=== PATIENT | female | born 1960 | race Hispanic/Latino ===

== ENCOUNTER 2017-08-27 19:25 | Emergency (ER) | payer OTHER ==
[2017-08-27 19:25] VITALS: BMI 21.7
[2017-08-27 19:33] VITALS: PULSE 78; RESP 16; TEMP 97.8; O2SAT 98
[2017-08-27 20:26] LABS: BASO # 0.1 K/uL (0.0-0.2); BASO % 1.3 % (0.0-2.0); EOS # 0.1 K/uL (0.0-0.7); EOS % 1.3 % (0.0-4.0); HEMOGLOBIN 11.3 g/dL (12.0-16.0); LYMPH # 1.2 K/uL (1.0-4.3); LYMPH % 14.9 % (20.0-40.0); MEAN CORPUSCULAR HEMOGLOBIN 26.5 pg (27.0-31.0); MEAN CORPUSCULAR HGB CONC 30.8 g/dL (33.0-37.0); MEAN PLATELET VOLUME 7.9 fl (7.2-11.7); MONO # 0.7 K/uL (0.0-0.8); MONO % 8.9 % (0.0-10.0); NEUT # 6.2 K/uL (1.8-7.0); NEUT % 73.6 % (50.0-75.0); NRBC % 0.1 % (0.0-0.0); RBC 4.25 Mil/uL (3.80-5.20); RED CELL DISTRIBUTION WIDTH 17.7 % (11.5-14.5); WHITE BLOOD COUNT 8.4 K/uL (4.8-10.8)
[2017-08-27 20:38] LABS: INR 1.1 (0.9-1.2); PARTIAL THROMBOPLASTIN TIME 29.7 Seconds (25.6-37.1); PROTHROMBIN TIME 11.8 Seconds (9.8-13.1)
[2017-08-27 20:40] LABS: ALBUMIN 3.6 g/dL (3.5-5.0); ALT/SGPT 38 U/L (9-52); AST/SGOT 27 U/L (14-36); BLOOD UREA NITROGEN 16 mg/dl (7-17); CALCIUM 9.4 mg/dL (8.4-10.2); GFR AFRICAN-AMERICAN > 60; GFR NON-AFRICAN AMERICAN > 60
--- NOTE | 2017-08-27 20:40 | ED PDOC ---
HPI: Female Pain Time Seen by Provider: 08/27/17 19:41 Chief Complaint (Nursing): Female Genitourinary Chief Complaint (Provider): Vaginal bleeding History Per: Patient History/Exam Limitations: no limitations Onset/Duration Of Symptoms: Hrs Additional Complaint(s): 57yo female, presents to ED for evaluation of vaginal bleeding since this evening. Patient sttaes she underwent an endometrial biopsy at 1800 today and since then has had excessive bleeding. She was advised by Dr. Villareal to come to the ER for further evaluation. She denies any vaginal pain, light headedness , shortness of breath or chest pain. Patient was recently admitted to [facility] due to severe anemia, Hgb of 6 and transfused 4 units of blood. Source of anemia was thought to be due to vaginal bleeding. Abnormal Vaginal Bleeding: Yes Past Medical History Reviewed: Historical Data, Nursing Documentation, Vital Signs Vital Signs: Last Vital Signs Temp 97.8 F 08/27/17 19:28 Pulse 78 08/27/17 19:28 Resp 16 08/27/17 19:28 BP 184/95 H 08/27/17 19:28 Pulse Ox 98 08/27/17 19:28 - Medical History PMH: CHF, Hypercholesterolemia - Surgical History Surgical History: Tonsillectomy - Family History Family History: States: No Known Family Hx - Immunization History Hx Tetanus Toxoid Vaccination: No Hx Influenza Vaccination: No Hx Pneumococcal Vaccination: No - Home Medications Home Medications: Ambulatory Orders Medication Instructions Recorded Atorvastatin Calcium 10 mg PO DIN 08/22/17 Cyanocobalamin (Vitamin B-12) 1,000 mcg PO DAILY 08/22/17 [Vitamin B-12] Glucosamine Sulfate 1,000 mg PO DAILY 08/22/17 Metoprolol Tartrate [Lopressor] 100 mg PO DAILY 08/22/17 Spironolact/Hydrochlorothiazid 1 each PO DAILY 08/22/17 [Spironolactone-Hctz 25-25 Tab] Vit C/Ascorbate Calcium,Sodium 500 mg PO DAILY 08/22/17 Vit D3-Vit K/Berberine/Hops 1,000 mg PO DAILY 08/22/17 [Ostera Tablet] - Allergies Allergies/Adverse Reactions: Allergies Allergy/AdvReac Type Severity Reaction Status Date / Time Penicillins Allergy Unknown RASH Verified 08/27/17 19:34 Review of Systems ROS Statement: Except As Marked, All Systems Reviewed And Found Negative (as per HPI) Cardiovascular: Negative for: Light Headedness Respiratory: Negative for: Shortness of Breath Genitourinary Female: Positive for: Vaginal Bleeding. Negative for: Pelvic Pain Physical Exam - Reviewed Nursing Documentation Reviewed: Yes Vital Signs Reviewed: Yes - Physical Exam Appears: Positive for: Non-toxic, No Acute Distress Skin: Positive for: Warm, Dry, Pallor Eye Exam: Positive for: EOMI, PERRL ENT: Negative for: Pharyngeal Erythema, Tonsillar Exudate Neck: Positive for: Painless ROM, Supple Cardiovascular/Chest: Positive for: Regular Rate, Rhythm. Negative for: Murmur Respiratory: Positive for: Normal Breath Sounds. Negative for: Wheezing Gastrointestinal/Abdominal: Positive for: Soft. Negative for: Tenderness, Mass , Distended, Guarding, Rebound Back: Positive for: Normal Inspection. Negative for: Decreased ROM Lymphatic: Negative for: Adenopathy Neurologic/Psych: Positive for: Alert. Negative for: Motor/Sensory Deficits - Laboratory Results Result Diagrams: 08/27/17 20:00 08/27/17 20:00 - ECG O2 Sat by Pulse Oximetry: 98 (RA) Pulse Ox Interpretation: Normal Medical Decision Making Medical Decision Making: Impression: Vaginal bleeding, anemia Plan: -- Labs -- Reassess Time: 2050 Labs reviewed, hemoglobin level 11.3 Pt still has only used <1 pad since her procedure. Case discussed with Dr. Villareal, patient's OBGYN who states patient can go home and to follow up in 1.5 weeks. Findings and [place] of care discussed with patient who is agreeable. Stable for discharge home. Scribe Attestation: Documented by Barbara Alvares acting as a scribe for Ava Leivne MD. Provider Attestation: All medical record entries made by the Scribe were at my direction and personally dictated by me. I have reviewed the chart and agree that the record accurately reflects my personal performance of the history, physical exam, medical decision making, and the department course for this patient. I have also personally directed, reviewed, and agree with the discharge instructions and disposition. Disposition - Clinical Impression Clinical Impression: Excessive vaginal bleeding Counseled Patient/Family Regarding: Studies Performed, Diagnosis, Need For Followup - Disposition Referrals: Davey Villareal MD [Staff Provider] - 08/28/17 (CALL TOMORROW TO SETUP FOLLOWUP APPOINTMENT WITH DR VILLAREAL WITHIN 2 WEEK) Disposition: Routine/Home Disposition Time: 20:51 Condition: IMPROVED Instructions: Endometrial Biopsy Forms: [employer] (Armenian)
[2017-08-27 21:06] VITALS: BP 179/97
== END 2017-08-27 21:39 | disposition home or self-care (01) ==
LOC: H.ER 19:25
DX: N93.8 Other specified abnormal uterine and vaginal bleeding (principal); D64.9 Anemia, unspecified; E78.00 Pure hypercholesterolemia, unspecified; I50.9 Heart failure, unspecified; Z88.0 Allergy status to penicillin